=== PATIENT | female | born 1955 | race Caucasian/White ===

== ENCOUNTER → 2016-10-25 | Outpatient (CLI) | payer OTHER ==
[~2016-10-25] MED LIST: ATARAX25 MG PO; B COMPLEX1 EACH PO; CALCIUM MAGNES1 EACH PO; CELEXA10 MG PO; DAPSONE25 MG PO; DIPROLENE AF 00.05 % TOP; FISH-FLAX-BORA1 EACH PO; FLEXERIL10 MG PO; IMITREX100 MG PO; NIZORAL30 GM TOP; NORCO 5-325 TA1 EACH PO; PHENERGAN25 M1 PO; POTASSIUM99 MG PO; THERA-VITE W/ B1 TAB PO; TOPAMAX50 MG PO; TRIAMCINOLONE 080 GM TOP; VITAMIN D2000 UNI1 PO; VITAMIN E400 UNIT PO; ZYRTEC-D TABLE1 EACH PO
== END | disposition disaster alternative care site (69) ==
LOC: GRAD 12:59
DX: R10.2 Pelvic and perineal pain (principal); R31.29 Other microscopic hematuria; Z90.710 Acquired absence of both cervix and uterus

== ENCOUNTER → 2016-11-27 | Outpatient (CLI) | payer OTHER | END | disposition disaster alternative care site (69) | LOC: GBCOE 14:30 | DX: Z12.31 Encounter for screening mammogram for malignant neoplasm of breast (principal); N63 Unspecified lump in breast | CPT/HCPCS: G0202 ==

== ENCOUNTER → 2016-11-29 | Outpatient (CLI) | payer OTHER | END | disposition disaster alternative care site (69) | LOC: GRAD 08:59 | DX: R92.8 Other abnormal and inconclusive findings on diagnostic imaging of breast (principal); N63 Unspecified lump in breast ==

== ENCOUNTER → 2016-12-07 | Outpatient (CLI) | payer OTHER ==
--- NOTE | 2016-12-07 08:50 | NUR ---
Met with patient in [facility]. Introduced self and role of nurse navigator. Permission received for follow up call tomorrow. Patient requests call between 10am and 2pm due to work.
--- NOTE | 2016-12-08 11:35 | NUR ---
Post biopsy follow up call made. Patient is doing well. No bruising or swelling. Minimal discomfort. Had some discomfort yesterday when numbing medication was wearing off. She also had forgotten about using her arm on the biopsy side and had put her purse and lunch bag over that shoulder which caused some discomfort for awhile in the left breast. This area feels much better today. No questions or concerns.
== END | disposition disaster alternative care site (69) ==
LOC: GOPD 12-04 → GBCOE 08:18 → GONC 08:18 → GOPD 08:18
PROC: 0H9U3ZX Drainage of Left Breast, Percutaneous Approach, Diagnostic (ICD-10-PCS; principal; 2016-12-07)
DX: N60.12 Diffuse cystic mastopathy of left breast (principal); N63 Unspecified lump in breast
CPT/HCPCS: J7050